=== PATIENT | male | born 1985 | race Two or more races ===

== ENCOUNTER 2023-11-25 15:28 | Emergency (ER) | payer OTHER ==
[~2023-11-25] VITALS: Ht 167.6 cm; Wt 59.0 kg
[2023-11-25] MEDS ORDERED: ELVITEG/COB/EMTRI/TENOFO DISOP 1 UDTAB TABLET PO ONE ×2 (17:41→17:45)
[2023-11-25] MEDS ORDERED: STRIBILD TABLE1 EACH PO (17:42)
== END 2023-11-25 17:50 | disposition home or self-care (01) ==
LOC: ER 15:28
DX: Z72.51 High risk heterosexual behavior (principal)